=== PATIENT | male | born 1955 | race Caucasian/White ===

== ENCOUNTER 2019-02-19 09:12 | Day surgery (SDC) | payer MEDICARE, OTHER ==
[~2019-02-19] VITALS: Ht 170.2 cm; Wt 80.3 kg
[2019-02-19] MEDS ORDERED: HTN MED (09:36)
[2019-02-19] MEDS ORDERED: METFORMIN (09:36)
[2019-02-19] MEDS ORDERED: FLOMAX (09:36)
[2019-02-19 09:38] VITALS: Ht 170.2 cm; Wt 80.3 kg
[2019-02-19 09:57] VITALS: BP 190/93; PULSE 76; RESP 18
--- NOTE | 2019-02-19 10:45 | PREAC ---
Date/Time of Note Date/Time of Note DATE: 02/19/19 TIME: 10:41 Anesthesia Eval and Record Evaluation Time Pre-Procedure Interview DATE: 02/19/19 TIME: 10:41 Age 64 Sex male NPO: 8 hrs Preoperative diagnosis HISTORY OF POLYPS OF COLON Planned procedure COLONOSCOPY Past Medical History Past Medical History: Includes Cardio: HTN Endo: Diabetes (BS 137) Pulm: Smoking Hx Infection(s): Other (HEP A) Surgery & Anesthesia Issues No known issue Meds Anticoagulation: No Beta Gerald within 24 hr: No Reason Beta Gerald not given: Pt. not on B-Gerald Reported Medications [Flomax] No Conflict Check 02/19/19 [Metformin] No Conflict Check 02/19/19 [Htn Med] No Conflict Check 02/19/19 Meds reviewed: Yes Allergies Coded Allergies: No Known Allergy (Unverified , 02/19/19) Allergies Reviewed: Yes Labs/Studies Labs Reviewed: Other (NA) test: N/A Pre-procedure Exam Last vitals Vital Signs Date Temp Pulse Resp B/P (MAP) Pulse Ox O2 O2 Flow FiO2 Time Delivery Rate 02/19/19 98.5 76 18 190/93 95 Room Air 09:57 (125) Airway: Adequate mouth opening Mallampati: Mallampati II Teeth: Abnormal (top dentures) Lung: Normal Heart: Normal ASA Physical Status ASA physical status: 2 Emergency: None Planned Anesthetic General/MAC: MAC Pre-operative Attestations Prior to commencing anesthesia and surgery, the patient was re-evaluated, there was verification of: *The patient's identity *The results of appropriate recent lab work and preoperative vital signs *The above evaluation not changing prior to induction *Anesthetic plan, risk benefits, alternative and complications discussed with patient/family; questions answered; patient/family understands, accepts and wishes to proceed. MILAGROS HOOVER Feb 19, 2019 10:45
[2019-02-19] MEDS ORDERED: LIDOCAINE 100 MG SYRINGE ONE (10:49)
[2019-02-19] MEDS ORDERED: PROPOFOL 40 ML ONE (10:49)
[2019-02-19] MEDS ORDERED: DEXAMETHASONE 4 MG/ML 1 ML INJ ONE (10:59)
[2019-02-19 11:32] VITALS: BP 143/77; PULSE 69; RESP 18
--- NOTE | 2019-02-19 11:36 | PAC ---
Date/Time of Note Date/Time of Note DATE: 02/19/19 TIME: 11:36 Post-Anesthesia Notes Post-Anesthesia Note Last documented vital signs Vital Signs Date Temp Pulse Resp B/P (MAP) Pulse Ox O2 O2 Flow FiO2 Time Delivery Rate 02/19/19 98.5 76 18 190/93 95 Room Air 09:57 (125) Activity: WNL Respiratory function: WNL Cardiovascular function: WNL Mental status: Baseline Pain reasonably controlled: Yes Hydration appropriate: Yes Nausea/Vomiting absent: Yes MILAGROS HOOVER Feb 19, 2019 11:36
[2019-02-19 12:03] VITALS: BP 139/76; PULSE 66; RESP 20
== END 2019-02-19 13:37 | disposition home or self-care (01) ==
LOC: GIL 09:12 → EDBD 11:00 → GIL 13:37
PROVIDERS: ATTEND Internal Medicine Gastroenterology
DX: K64.8 Other hemorrhoids (principal); K57.30 Diverticulosis of large intestine without perforation or abscess without bleeding; Z86.010 Personal history of colon polyps; I10 Essential (primary) hypertension; E11.9 Type 2 diabetes mellitus without complications; F17.200 Nicotine dependence, unspecified, uncomplicated; Z79.84 Long term (current) use of oral hypoglycemic drugs
CPT/HCPCS: 45378; 82962; J2001; J1100